=== PATIENT | male | born 1960 | race Caucasian/White ===

== ENCOUNTER 2025-01-26 06:18 | Day surgery (SDC) | payer BC ==
[2025-01-26 06:46] LABS: PLATELET COUNT,PLT 177.0 K/uL (130-375); RED BLOOD CELL COUNT 4.73 M/uL (4.14-5.76); WHITE BLOOD CELL COUNT,WBC 4.1 K/uL (3.2-11.0)
[2025-01-26] MEDS: Lactated Ringers 1,000 ML IV SCH (07:05)
[2025-01-26 07:07] LABS: A/G RATIO 1.1 (1.2-2.2); ALANINE AMINOTRANSFERASE,ALT 45 U/L (12-78); ASPARTATE AMNIOTRANSFERASE,AST 22 U/L (15-37); BILIRUBIN TOTAL 0.5 mg/dL (0.2-1.0); BLOOD UREA NITROGEN,BUN 20 mg/dL (7-18); CARBON DIOXIDE,CO2 30 mmol/L (21-32); CHLORIDE,CL 105 mmol/L (100-108); CREATININE 1.0 mg/dL (0.8-1.3); EST CRCL DRUG DOSING (CG) 76.04 mL/min; ESTIMATED GFR 84 mL/min (>60); GLUCOSE RANDOM 100 mg/dL (74-106); POTASSIUM,K 4.6 mmol/L (3.6-5.2); PROTEIN TOTAL,TP 7.0 g/dL (6.4-8.2); SODIUM,NA 140 mmol/L (140-148)
[2025-01-26] MEDS: metroNIDAZOLE/Normal Saline 500 MG in Premix Bag 1 BAG IV ONE (07:11)
[2025-01-26] MEDS ORDERED: Ondansetron 4 MG/2 ML SDV ONE (07:14)
[2025-01-26] MEDS ORDERED: fentaNYL 250 MCG/5 ML SDV ONE (07:14)
[2025-01-26] MEDS ORDERED: Propofol 200 MG/20 ML SDV ONE (07:14)
[2025-01-26] MEDS ORDERED: Dexamethasone 4 MG/ML SDV ONE (07:14)
[2025-01-26] MEDS ORDERED: Ketorolac 30 MG/ML SDV ONE (09:10)
[2025-01-26] MEDS ORDERED: Acetaminophen/HYDROcodone 325-5 MG Tab PO PRN (11:30)
[2025-01-26] MEDS: Acetaminophen/HYDROcodone 325-5 MG Tab PO PRN (11:37)
== END 2025-01-26 13:05 | disposition home or self-care (01) ==
LOC: JP.SDS 06:18
PROVIDERS: ATTEND Surgery
DX: K40.31 Unilateral inguinal hernia, with obstruction, without gangrene, recurrent (principal); K21.9 Gastro-esophageal reflux disease without esophagitis; E78.00 Pure hypercholesterolemia, unspecified; Z79.899 Other long term (current) drug therapy
CPT/HCPCS: 36415; 49651; 80053; 85027; A9270; C1781; J0169; J0665; J0690; J1100; J1836; J1885; J2405; J2704; J2795; J3010; J7120; 00840-QZ; J3490